=== PATIENT | female | born 1980 | race African-American/Black ===

== ENCOUNTER 2016-08-29 20:01 | Emergency (ER) | payer MEDICAID ==
[~2016-08-29] VITALS: Ht 160 cm; Wt 59.0 kg
[2016-08-29 21:13] LABS: Basophils # (auto) 0.1 uL; Basophils % (auto) 0.6 % (0.0-2.0); Eosinophils # (auto) 0.1 uL; Eosinophils % (auto) 1.3 % (0.0-7.0); Hematocrit 38.8 % (36.0-46.0); Hemoglobin 12.9 g/dL (12.2-16.2); Lymphocytes # (auto) 3.6 uL; Lymphocytes % (auto) 38.6 % (10.0-50.0); Mean Corpuscular Hemoglobin 30.5 pg (28.0-32.0); Mean Corpuscular Hgb Conc. 33.2 g/dL (32.0-36.0); Mean Corpuscular Volume 92.1 fL (80.0-100.0); Mean Platelet Volume 7.2 fL (7.4-10.4); Monocytes # (auto) 0.7 uL; Monocytes % (auto) 7.1 % (0.0-12.0); Neutrophils # (auto) 4.9 uL; Neutrophils % (auto) 52.4 % (37.0-80.0); Platelet Count (auto) 390 10^3/uL (140-450); Red Cell Distribution Width 14.2 % (11.6-16.0); White Blood Cell 9.4 10^3/uL (4.4-10.8)
[2016-08-29 21:21] LABS: Urine Bilirubin Negative (Negative); Urine Color Colorless (Yellow); Urine Glucose Normal (Normal); Urine Ketone Negative (Negative); Urine Nitrite Negative (Negative); Urine RBC 2 /hpf (0 - 4); Urine Squamous Epithelial Cell FEW /hpf (<5); Urine Urobilinogen Normal (Negative)
[2016-08-29 21:23] LABS: Urine Blood 1+ /uL (Negative)
[2016-08-29 21:26] LABS: Albumin 3.6 g/dL (3.4-5.0); Anion Gap 9 (5-15); Aspartate Aminotransferase 12 U/L (15-37); Blood Urea Nitrogen 8 mg/dL (7-18); Calcium 7.9 mg/dL (8.5-10.1); Carbon Dioxide 24 mmol/L (21-32); Chloride 106 mmol/L (98-107); GFR African American 104 mL/min; GFR Non-African American 86 mL/min; Glucose 88 mg/dL (74-106); Potassium 3.5 mmol/L (3.5-5.1); Salicylate 3.6 mg/dL (2.8-20.0); Sodium 139 mmol/L (136-145)
[2016-08-29 21:29] LABS: Alkaline Phosphatase 65 U/L (45-117); Bilirubin, Total 0.2 mg/dL (0.2-1.0); Total Protein 7.7 g/dL (6.4-8.2)
[2016-08-29 21:30] LABS: Acetaminophen < 2.0 ug/mL (10-30)
[2016-08-30] MEDS ORDERED: OLANZapine 5 MG TAB PO ONE (06:30)
[2016-08-31] MEDS ORDERED: ACETAMINOPHEN 325 MG TAB PO ONE ×2 (07:22→07:30)
[2016-09-01] MEDS ORDERED: ACETAMINOPHEN 325 MG TAB PO ONE (01:00)
[2016-09-01] MEDS ORDERED: traMADol HCL 50 MG TAB ONE (07:54)
[2016-09-01] MEDS ORDERED: traMADol HCL 50 MG TAB PO PRN (08:00)
[2016-09-02 06:06] VITALS: BP 113/58
== END 2016-09-02 15:40 | disposition home or self-care (01) ==
LOC: ER 20:05
DX: F20.9 Schizophrenia, unspecified (principal); M25.531 Pain in right wrist; Z59.0 Homelessness; I10 Essential (primary) hypertension
CPT/HCPCS: 36415; 80053; 80320; 80329; 81001; 81025; 84443; 85025; 85049; 99285; G0434

== ENCOUNTER 2016-09-19 17:43 | Emergency (ER) | payer MEDICAID ==
[~2016-09-19] VITALS: Ht 167.6 cm; Wt 68.0 kg
[2016-09-19 19:24] LABS: Basophils # (auto) 0.1 uL; Basophils % (auto) 1.1 % (0.0-2.0); Eosinophils # (auto) 0.3 uL; Eosinophils % (auto) 3.2 % (0.0-7.0); Hematocrit 39.5 % (36.0-46.0); Hemoglobin 12.5 g/dL (12.2-16.2); Lymphocytes # (auto) 3.4 uL; Lymphocytes % (auto) 40.1 % (10.0-50.0); Mean Corpuscular Hgb Conc. 31.6 g/dL (32.0-36.0); Mean Corpuscular Volume 91.9 fL (80.0-100.0); Mean Platelet Volume 7.2 fL (7.4-10.4); Monocytes # (auto) 0.7 uL; Monocytes % (auto) 8.3 % (0.0-12.0); Neutrophils % (auto) 47.3 % (37.0-80.0); Platelet Count (auto) 479 10^3/uL (140-450); Red Cell Distribution Width 13.9 % (11.6-16.0); White Blood Cell 8.4 10^3/uL (4.4-10.8)
[2016-09-19 19:25] LABS: Albumin 3.4 g/dL (3.4-5.0); Anion Gap 11 (5-15); Aspartate Aminotransferase 15 U/L (15-37); BUN/Creatinine Ratio 8.7; Blood Urea Nitrogen 6 mg/dL (7-18); Carbon Dioxide 24 mmol/L (21-32); Chloride 104 mmol/L (98-107); GFR African American 123 mL/min; GFR Non-African American 102 mL/min; Glucose 83 mg/dL (74-106); Potassium 3.4 mmol/L (3.5-5.1); Sodium 139 mmol/L (136-145)
[2016-09-19 19:28] LABS: Acetaminophen < 2.0 ug/mL (10-30); Alkaline Phosphatase 62 U/L (45-117); Bilirubin, Total 0.2 mg/dL (0.2-1.0); Total Protein 7.1 g/dL (6.4-8.2)
[2016-09-20 00:46] LABS: Urine Bilirubin Negative (Negative); Urine Blood Negative /uL (Negative); Urine Color Colorless (Yellow); Urine Glucose Normal (Normal); Urine Ketone Negative (Negative); Urine Nitrite Negative (Negative); Urine RBC 2 /hpf (0 - 4); Urine Squamous Epithelial Cell FEW /hpf (<5); Urine Urobilinogen Normal (Negative)
[2016-09-20] MEDS: POTASSIUM CHL 10% (20 MEQ/15ML) ORAL SOLN PO ONE (11:04)
[2016-09-22] MEDS: ACETAMINOPHEN 500 MG TAB PO ONE ×2 (07:30→07:33)
[2016-09-23 10:08] VITALS: BP 109/63
== END 2016-09-23 10:30 | disposition home or self-care (01) ==
LOC: EDBD 17:43 → ER 17:48
DX: F23 Brief psychotic disorder (principal); Z59.0 Homelessness
CPT/HCPCS: 36415; 80053; 80320; 80329; 81001; 81025; 85025; 99284; G0434

== ENCOUNTER 2016-09-26 16:57 | Emergency (ER) | payer MEDICAID ==
[~2016-09-26] VITALS: Ht 160 cm; Wt 70.8 kg
[2016-09-27 07:51] LABS: Urine Bilirubin Negative (Negative); Urine Color Yellow (Yellow); Urine Glucose Normal (Normal); Urine Ketone Negative (Negative); Urine Mucus FEW (None Seen); Urine Nitrite Negative (Negative); Urine RBC 4 /hpf (0 - 4); Urine Squamous Epithelial Cell MOD /hpf (<5); Urine Urobilinogen Normal (Negative); Urine pH 5.5 (5.0-8.0)
[2016-09-27 07:55] LABS: Urine Blood 2+ /uL (Negative)
[2016-09-27] MEDS ORDERED: LORazepam 0.5 MG TAB PO ONE (08:00)
[2016-09-27 08:57] LABS: Basophils # (auto) 0 uL; Basophils % (auto) 0.3 % (0.0-2.0); Eosinophils # (auto) 0.2 uL; Eosinophils % (auto) 3.3 % (0.0-7.0); Hemoglobin 12.8 g/dL (12.2-16.2); Lymphocytes # (auto) 2.2 uL; Lymphocytes % (auto) 44.1 % (10.0-50.0); Mean Corpuscular Hemoglobin 28.3 pg (28.0-32.0); Mean Corpuscular Hgb Conc. 31.3 g/dL (32.0-36.0); Mean Corpuscular Volume 90.7 fL (80.0-100.0); Mean Platelet Volume 7.5 fL (7.4-10.4); Monocytes # (auto) 0.4 uL; Monocytes % (auto) 8.2 % (0.0-12.0); Neutrophils # (auto) 2.2 uL; Neutrophils % (auto) 44.1 % (37.0-80.0); Platelet Count (auto) 397 10^3/uL (140-450); Red Cell Distribution Width 14.1 % (11.6-16.0)
[2016-09-27] MEDS ORDERED: NITROFURANTOIN (MONO) 100 mg CAP PO ONE (09:00)
[2016-09-27 09:20] LABS: Albumin 3.6 g/dL (3.4-5.0); BUN/Creatinine Ratio 10.8; Calcium 8.4 mg/dL (8.5-10.1); Potassium 3.8 mmol/L (3.5-5.1)
[2016-09-27 09:22] LABS: Bilirubin, Total 0.3 mg/dL (0.2-1.0); Total Protein 7.2 g/dL (6.4-8.2)
[2016-09-27 10:01] LABS: Acetaminophen < 2.0 ug/mL (10-30); Salicylate 3.3 mg/dL (2.8-20.0)
[2016-09-29] MEDS: NITROFURANTOIN (MONO) 100 mg CAP PO SCH ×2 (12:00→22:34)
[2016-09-29] MEDS ORDERED: NITROFURANTOIN (MONO) 100 mg CAP PO ONE ×2 (12:46→22:24)
[2016-09-29] MEDS ORDERED: ACETAMINOPHEN 325 MG TAB PO PRN (18:45)
[2016-09-29] MEDS ORDERED: ACETAMINOPHEN 325 MG TAB PO ONE ×2 (18:53→19:00)
[2016-09-30] MEDS ORDERED: LORazepam 0.5 MG TAB ONE (08:41)
[2016-09-30] MEDS ORDERED: LORazepam 0.5 MG TAB PO ONE (08:45)
[2016-09-30] MEDS: NITROFURANTOIN (MONO) 100 mg CAP PO SCH (10:30)
[2016-09-30] MEDS ORDERED: NITROFURANTOIN (MONO) 100 mg CAP PO ONE (10:44)
[2016-09-30 12:55] VITALS: BP 102/61
== END 2016-09-30 19:03 | disposition home or self-care (01) ==
LOC: ER 17:11
DX: F41.9 Anxiety disorder, unspecified (principal); N39.0 Urinary tract infection, site not specified; M25.571 Pain in right ankle and joints of right foot; R45.851 Suicidal ideations; F20.9 Schizophrenia, unspecified; F29 Unspecified psychosis not due to a substance or known physiological condition; Z59.0 Homelessness
CPT/HCPCS: 36415; 73610; 80053; 80329; 81001; 81025; 85025; 99285; G0434

== ENCOUNTER 2016-10-01 20:32 | Emergency (ER) | payer MEDICAID ==
[~2016-10-01] VITALS: Ht 160 cm; Wt 70.3 kg
[2016-10-01 21:42] LABS: Basophils # (auto) 0.1 uL; Basophils % (auto) 0.7 % (0.0-2.0); Eosinophils # (auto) 0.1 uL; Eosinophils % (auto) 0.9 % (0.0-7.0); Hematocrit 38.6 % (36.0-46.0); Hemoglobin 13.1 g/dL (12.2-16.2); Lymphocytes # (auto) 2.1 uL; Lymphocytes % (auto) 19.8 % (10.0-50.0); Mean Corpuscular Hemoglobin 30.2 pg (28.0-32.0); Mean Corpuscular Hgb Conc. 33.8 g/dL (32.0-36.0); Mean Corpuscular Volume 89.3 fL (80.0-100.0); Mean Platelet Volume 7.2 fL (7.4-10.4); Monocytes # (auto) 0.4 uL; Monocytes % (auto) 4.1 % (0.0-12.0); Neutrophils % (auto) 74.5 % (37.0-80.0); Platelet Count (auto) 402 10^3/uL (140-450); Red Cell Distribution Width 14.4 % (11.6-16.0); White Blood Cell 10.8 10^3/uL (4.4-10.8)
[2016-10-01 22:07] LABS: Albumin 3.6 g/dL (3.4-5.0); Bilirubin, Total 0.2 mg/dL (0.2-1.0); Calcium 8.7 mg/dL (8.5-10.1); Potassium 3.9 mmol/L (3.5-5.1); Total Protein 7.4 g/dL (6.4-8.2)
[2016-10-01 22:41] LABS: Urine Bilirubin Negative (Negative); Urine Color Yellow (Yellow); Urine Glucose Normal (Normal); Urine Ketone Negative (Negative); Urine Nitrite Negative (Negative); Urine RBC 11 /hpf (0 - 4); Urine Squamous Epithelial Cell FEW /hpf (<5); Urine Urobilinogen Normal (Negative)
[2016-10-01 22:42] LABS: Urine Blood 1+ /uL (Negative)
[2016-10-02] MEDS ORDERED: LORazepam 0.5 MG TAB ONE (05:55)
[2016-10-02] MEDS ORDERED: LORazepam 0.5 MG TAB PO ONE (06:15)
[2016-10-02 11:59] VITALS: BP 90/53
== END 2016-10-02 14:22 | disposition short-term general hospital (02) ==
LOC: ER 20:35
DX: F20.9 Schizophrenia, unspecified (principal); F29 Unspecified psychosis not due to a substance or known physiological condition; Z59.0 Homelessness
CPT/HCPCS: 36415; 80053; 80329; 81001; 81025; 85025; 93005; 99285; G0434

== ENCOUNTER 2020-09-03 17:32 | Emergency (ER) | payer MEDICAID ==
[~2020-09-03] VITALS: Ht 160 cm; Wt 76.7 kg
[2020-09-03 21:59] LABS: Amphetamine Screen, Urine NEGATIVE (NEGATIVE); Barbiturate Scree,Urine NEGATIVE (NEGATIVE); Benzodiazephine Screen, Urine NEGATIVE (NEGATIVE); Cannabinoid Screen, Urine NEGATIVE (NEGATIVE); Cocaine Screen, Urine NEGATIVE (NEGATIVE); Opiate Scree,Urine NEGATIVE (NEGATIVE); Phencyclidine Screen, Urine NEGATIVE (NEGATIVE)
[2020-09-04] MEDS ORDERED: ACETAMINOPHEN 325 MG TAB PO ONE ×2 (10:27→10:45)
[2020-09-04] MEDS: OLANZapine 5 MG TAB PO SCH (15:13)
[2020-09-04 19:02] LABS: Basophils # (auto) 0 10 ^3/uL (0-0.2); Basophils % (auto) 0.7 % (0.0-2.0); Eosinophils # (auto) 0.2 10 ^3/uL (0-0.8); Eosinophils % (auto) 2.6 % (0.0-7.0); Hematocrit 35.1 % (36.0-46.0); Lymphocytes # (auto) 2.8 10 ^3/uL (0.4-5.4); Lymphocytes % (auto) 47.2 % (10.0-50.0); Mean Corpuscular Hemoglobin 30.4 pg (28.0-32.0); Mean Corpuscular Hgb Conc. 34.2 g/dL (32.0-36.0); Mean Corpuscular Volume 88.9 fL (80.0-100.0); Monocytes # (auto) 0.5 10 ^3/uL (0-1.3); Monocytes % (auto) 8.8 % (0.0-12.0); Neutrophils # (auto) 2.4 10 ^3/uL (1.6-8.6); Neutrophils % (auto) 40.7 % (37.0-80.0); Platelet Count (auto) 351 10^3/uL (140-450); Red Blood Cells 3.94 10^6/uL (4.0-5.20); Red Cell Distribution Width 14.4 % (11.8-14.3)
[2020-09-04 19:13] LABS: Albumin 3.2 g/dL (3.4-5.0); Calcium 8.3 mg/dL (8.5-10.1); Potassium 3.9 mmol/L (3.5-5.1)
[2020-09-04 19:16] LABS: BUN/Creatinine Ratio 18.8; Bilirubin, Total 0.1 mg/dL (0.2-1.0); Total Protein 6.9 g/dL (6.4-8.2)
[2020-09-05] MEDS: OLANZapine 5 MG TAB PO SCH (10:19)
[2020-09-05 11:06] LABS: Urine Bacteria NONE SEEN /hpf (None Seen); Urine Blood 1+ /uL (Negative); Urine Specific Gravity 1.015 (1.001-1.035); Urine WBC <1 /hpf (0 - 5)
[2020-09-05 13:07] VITALS: BP 125/85
== END 2020-09-05 13:24 | disposition short-term general hospital (02) ==
LOC: ER 17:33
DX: F20.9 Schizophrenia, unspecified (principal); R45.851 Suicidal ideations; Z20.822 Contact with and (suspected) exposure to COVID-19
CPT/HCPCS: 36415; 80053; 80307; 80320; 81001; 81025; 85025; 87426; 99285; C9803; U0003

== ENCOUNTER 2021-01-17 20:58 | Emergency (ER) | payer MEDICAID ==
[~2021-01-17] VITALS: Ht 160 cm; Wt 68.0 kg
[2021-01-18] MEDS ORDERED: ACETAMINOPHEN 500 MG TAB PO ONE (01:45)
[2021-01-18 06:10] VITALS: BP 164/83
== END 2021-01-18 02:52 | disposition home or self-care (01) ==
LOC: ER 20:58
DX: M13.871 Other specified arthritis, right ankle and foot (principal); B35.3 Tinea pedis

== ENCOUNTER 2024-02-11 20:41 | Emergency (ER) | payer MEDICAID ==
[~2024-02-11] VITALS: Ht 160 cm; Wt 76.9 kg
[2024-02-11 21:43] LABS: Urine Bacteria FEW /hpf (None Seen); Urine Blood 2+ /uL (Negative); Urine Clarity Clear (Clear); Urine Color Light-Yellow (Yellow); Urine Protein, UAD Negative (Negative); Urine Specific Gravity 1.012 (1.001-1.035); Urine Urobilinogen Normal (Negative); Urine WBC 1 /hpf (0 - 5)
[2024-02-12 08:00] VITALS: PULSE 98; RESP 16; O2SAT 100
[2024-02-12] MEDS: risperiDONE 1 MG TAB PO SCH (10:08)
[2024-02-12 18:57] VITALS: BP 154/72; PULSE 78; RESP 18; TEMP 98.5; O2SAT 98
[2024-02-12] MEDS ORDERED: traZODone HCL 50 MG TAB PO SCH (22:00)
== END 2024-02-12 19:30 | disposition short-term general hospital (02) ==
LOC: ER 20:41
DX: R45.851 Suicidal ideations (principal); F32.9 Major depressive disorder, single episode, unspecified; F20.9 Schizophrenia, unspecified; F17.210 Nicotine dependence, cigarettes, uncomplicated; Z59.00 Homelessness unspecified
CPT/HCPCS: 81001